=== PATIENT | female | born 1970 | race Caucasian/White ===

== ENCOUNTER 2017-03-05 22:08 | Inpatient (IN) | payer OTHER ==
[~2017-03-05] VITALS: Ht 157.5 cm; Wt 90.8 kg
[~2017-03-05 22:08] MED LIST: GLU500 PO; HUMI SC; LANTI SQ; LOT10 PO; PRA40 PO
--- NOTE | 2017-03-05 23:07 | NUR ---
PT C/C WOUND CHECK TO HER MIDDLE TOE ON HER RIGHT FOOT. PT REPORTS ABRASION IN TOE BEGAN AT THE BEGINNING OF THIS MONTH AND WAS SEEN BY HCP. PT STATES SHE WAS BEING TREATED WITH ANTIBIOTIC BUT HAS NOTED IN THE PAST 3 DAYS WOUND BEGINNING TO GET WORSE. PT REPORTS FEELING PAIN THAT BEGIN IN HER MIDDLE TOE AND RADIATES UP HER RIGHT LEG. PT DOES HAVE SENSATION TO AFFECTED FOOT. PT IN BED WITH SIDERAILS UP FOR HER SAFETY. PT AAOX3, BREATHING WITHOUT DIFFICULTY. COMFORT MEASURES IN PLACE, CALL LIGHT IS WITHIN REACH. NO SX OF DISTRESS NOTE AT THIS TIME.
--- NOTE | 2017-03-05 23:07 | NUR ---
MSE COMPLETED BY DR PERRY
[2017-03-05 23:10] LABS: BASOPHIL % 0.8 % (0-2); PLATELET COUNT 253 x10^3mcL (130-400); RED CELL DISTRIBUTION WIDTH 12.8 % (11.5-14.5)
[2017-03-05 23:20] LABS: CALCIUM 9.1 mg/dL (8.5-10.1); CARBON DIOXIDE 26.7 mmol/L (21-32); CREATININE SERUM 1.5 mg/dL (0.6-1.0); POTASSIUM SERUM 4.3 mmol/L (3.5-5.1)
[2017-03-05 23:25] LABS: BILIRUBIN TOTAL 0.18 mg/dL (0.20-1.00)
[2017-03-05 23:28] LABS: ALBUMIN 3.2 g/dL (3.4-5.0); TOTAL PROTEIN, SERUM 8.3 g/dL (6.4-8.2)
--- NOTE | 2017-03-05 23:32 | NUR ---
XRAY AT BEDSIDE.
--- NOTE | 2017-03-06 00:22 | NUR ---
PT AMBULATED TO RESTROOM WITH EVEN AND STEADY GAIT.
[2017-03-06 00:29] LABS: ERYTHROCYTE SED RATE 70 mm/hr (0-20)
--- NOTE | 2017-03-06 01:48 | NUR ---
PT MEDICATED PER DR PERRY ORDERS. PT IV SITE PATENT WITH NO SX OF COMPLICATIONS NOTED. PT EDUCATED ON MED AND DENIES ANY ALLERGIES TO MED. PT AAOX3, BREATHING WITHOUT DIFFICULTY. NO SX OF DISTRESS NOTED. CALL LIGHT PLACED WITHIN REACH.
--- NOTE | 2017-03-06 02:12 | NUR ---
ADMISSION REPORT GIVEN TO LUC[facility]A EXT [id number] TO CONTINUE CARE.
[2017-03-06 03:50] VITALS: BP 144/66
--- NOTE | 2017-03-06 03:55 | NUR ---
PT ADMITTED FROM ED VIA W/C ACCOMPANIED BY NURSE. PT AMBULATORY WITH STEADY GAIT. ALERT AND AWAKE WITH VERBAL CLEAR SPEECH. AOX4. NO S/S OF RESPIRATORY DISTRESS NOTED ON ROOM AIR. LUNGS CLEAR BILATERALLY. ON TELE 5, NSR. DENIES ANY CHEST PAIN. ABD SOFT AND ROUND. BOWEL SOUNDS ACTIVE. LAST BM 03/06/17. SKIN WARM AND DRY. IV TO LEFT FA PATENT AND INTACT. NO S/S OF INFECTION NOTED. NOTED WITH EDEMA TO RLE 1-2+ WITH REDNESS AND SWELLING TO RIGHT 3RD TOE. NO DRAINAGE NOTED. PULSES PALPABLE. SCDS IN PLACE. PT STATES PAIN IS TOLERABLE AND REFUSES ANY PAIN MEDICATION AT THIS TIME. NO S/S OF DISTRESS NOTED. CALL LIGHT WITHIN REACH. WILL CONTINUE TO MONITOR.
[2017-03-06 04:30] VITALS: BP 144/66
--- NOTE | 2017-03-06 06:10 | NUR ---
PT CURRENTLY RESTING IN BED WITH EYES CLOSED. BREATHING EQUAL AND UNLABORED ON ROOM AIR. NO S/S OF RESPIRATORY DISTRESS NOTED. EASILY AROUSABLE. NO ADVERSE REACTIONS NOTED FROM IV CLEOCIN. IV PATENT AND INTACT. PT C/O 11/17 PAIN TO RLE. PRN NORCO 5 MG PO GIVEN. CALL LIGHT WITHIN REACH. WILL CONTINUE TO MONITOR.
--- NOTE | 2017-03-06 07:20 | NUR ---
REPORT RCD FROM JERRY HODGE. PATIENT AWAKE, ALERT, NO DISTRESS. REPORTS 7/10 PAIN BUT IMPROVED AND TOLERABLE AFTER PREVIOUS NORCO RCD. SALINE LOCK TO LFA, SITE W/O COMPLICATIONS. BED LOW, CALL LIGHT WITHIN REACH. WILL MONITOR.
--- NOTE | 2017-03-06 07:25 | NUR ---
SHIFT ASSESSMENT PERFORMED AND DOCUMENTED. A/OX4, DENIES HEADACHE OR DIZZINESS, SPEECH CLEAR, EQUAL HAND SEAMLESS TUBE ROLLER, COMMUNICATES NEEDS. TELE 5, SR, RATE IN 60s, DENIES CHEST PAIN. MODERATE PERIPHERAL PULSES. 1+ PITTING EDEMA TO RIGHT FOOT. REDNESS NOTED TO RIGHT 3RD DIGIT WITH DRY SCAB TO END OF TOE, CANDE, NO DRAINAGE NOTED. LUNGS CTA ROX, REG RESPS, DENIES SHORTNESS OF BREATH. ABD SOFT, NONTENDER, BOWEL SOUNDS ACTIVE. DENIES ELBA/VTG/CARY. AMBULATORY. CALM AND COOPERATIVE. WILL MONITOR.
--- NOTE | 2017-03-06 07:55 | NUR ---
PAGED DR. CLAYTON, RECEIVED RETURN CALL. PER DR. CLAYTON PLEASE ENTER TELEPHONE ORDER, READ BACK FOR [facility] DIET, SALINE LOCK AND FLUSH. ORDERS ENTERED PER MD REQUEST HE STATES HE IS AT [facility] AND UNABLE TO ENTER ORDERS AT THIS TIME.
[2017-03-06 09:49] VITALS: BP 104/47
--- NOTE | 2017-03-06 09:53 | NUR ---
MEDICATIONS GIVEN PER MAR. PATIENT REPORTS NO NEEDS AT THIS TIME.
--- NOTE | 2017-03-06 12:17 | NUR ---
PATIENT IS AWAKE ALERT, COMFORTABLE. NO NEEDS AT THIS TIME.
--- NOTE | 2017-03-06 13:05 | NUR ---
URINE COLLECTED AND DELIVERED TO LAB PER MD ORDER.
[2017-03-06 14:27] LABS: microscopic required? YES; urine erythrocyte 1+ (NEGATIVE)
--- NOTE | 2017-03-06 16:25 | NUR ---
SPOKE WITH DR. CLAYTON AND MADE AWARE OF CT RIGHT FOOT/ANKLE RESULTS. PER DR. LIN PATIENT IS STABLE FOR DISCHARGE HOME TODAY. PATIENT WILL BE SENT HOME WITH A PRESCRIPTION FOR CLINDAMYCIN 300 MG PO QID AND WILL NEED OUTPATIENT PICC LINE INSERTION FOR JAIL IV ANTIBIOTIC, HOME HEALTH WITH IV VANCOMYCIN PHARMACY TO DOSE FOR 6 WEEKS. PRIMARY NURSE MADE AWARE.
[2017-03-06 16:32] VITALS: BP 139/69
--- NOTE | 2017-03-06 17:00 | NUR ---
DR. CLAYTON INFORMED BY TRAMAINE, CHARGE NURSE, THE RESULTS OF CT SCAN OF RIGHT FOOT. PATIENT TO BE DISCHARGED ON ORAL ANTIBIOTICS. REFERRAL TO HOME HEALTH FOR PICC LINE INSERTION AND IV VANCOMYCIN X6 WEEKS FAXED TO NUMBER PROVIDED BY DR. CLAYTON (FAXED BY TRAMAINE). PATIENT PROVIDED WITH PRESCRIPTIONS. PER DR. CLAYTON, PATIENT TO BE DISCHARGED. SHE IS TO FOLLOW UP WITH HIM IN ONE WEEK IF SHE HAS NOT HEARD FROM HOME HEALTH. VERBAL AND WRITTEN DISCHARGE INSTRUCTIONS PROVIDED TO THE PATIENT. ALL QUESTIONS ANSWERED. IV TO LFA REMOVED, SITE W/O COMPLICATIONS. PATIENT GETTING DRESSED AND WILL CALL FOR ESCORT DOWNSTAIRS.
== END 2017-03-06 17:21 | disposition home or self-care (01) | DRG 344 ==
LOC: ED 22:08 → MU 03-06 00:49
PROVIDERS: Emergency Medicine; ADMIT Internal Medicine Pulmonary Disease
DX: E11.69 Type 2 diabetes mellitus with other specified complication (principal); M86.9 Osteomyelitis, unspecified; I10 Essential (primary) hypertension; L08.89 Other specified local infections of the skin and subcutaneous tissue; Z89.422 Acquired absence of other left toe(s); E78.00 Pure hypercholesterolemia, unspecified; N28.9 Disorder of kidney and ureter, unspecified
CPT/HCPCS: 82962; 83880; J1650; J1815; J3010; J3370; J3490; J7030; J7050; Q0092

== ENCOUNTER 2018-02-01 17:10 | Emergency (ER) | payer OTHER ==
[~2018-02-01] VITALS: Ht 157.5 cm; Wt 88.5 kg
[2018-02-01 17:24] VITALS: Ht 157.5 cm; Wt 88.5 kg
[2018-02-01 18:04] LABS: BASOPHIL % 0.7 % (0-2); PLATELET COUNT 269 x10^3mcL (130-400); RED CELL DISTRIBUTION WIDTH 12.9 % (11.5-14.5)
[2018-02-01 18:07] LABS: CALCIUM 9.1 mg/dL (8.5-10.1); CARBON DIOXIDE 25.8 mmol/L (21-32); CREATININE SERUM 1.6 mg/dL (0.6-1.0)
[2018-02-01 18:12] LABS: ALBUMIN 3.3 g/dL (3.4-5.0); BILIRUBIN TOTAL 0.2 mg/dL (0.20-1.00)
[2018-02-01 20:09] VITALS: BP 157/74
== END 2018-02-01 20:09 | disposition home or self-care (01) ==
LOC: ED 17:10
PROVIDERS: Emergency Medicine
DX: L03.031 Cellulitis of right toe (principal); E11.65 Type 2 diabetes mellitus with hyperglycemia; I10 Essential (primary) hypertension; E78.00 Pure hypercholesterolemia, unspecified; Z89.411 Acquired absence of right great toe; Z89.421 Acquired absence of other right toe(s)
CPT/HCPCS: 82962; J2543; J3490; J7030; Q0092

== ENCOUNTER 2018-05-15 11:04 | Emergency (ER) | payer OTHER ==
[~2018-05-15] VITALS: Ht 157.5 cm; Wt 87.2 kg
[2018-05-15 11:13] VITALS: Ht 157.5 cm; Wt 87.2 kg
[2018-05-15 12:13] LABS: BASOPHIL % 0.8 % (0-2); PLATELET COUNT 257 x10^3mcL (130-400); RED CELL DISTRIBUTION WIDTH 12.8 % (11.5-14.5)
[2018-05-15 12:20] LABS: CALCIUM 9.2 mg/dL (8.5-10.1); CARBON DIOXIDE 26.7 mmol/L (21-32); CREATININE SERUM 1.4 mg/dL (0.6-1.0); POTASSIUM SERUM 4.8 mmol/L (3.5-5.1)
[2018-05-15 13:00] VITALS: BP 165/82
== END 2018-05-15 13:00 | disposition home or self-care (01) ==
LOC: ED 11:04
PROVIDERS: Emergency Medicine
DX: L03.031 Cellulitis of right toe (principal)
CPT/HCPCS: 36415; 82962; Q0092

== ENCOUNTER 2018-06-19 13:12 | Emergency (ER) | payer OTHER ==
[~2018-06-19] VITALS: Ht 157.5 cm; Wt 90.7 kg
[2018-06-19 13:18] VITALS: Ht 157.5 cm; Wt 90.7 kg
[2018-06-19 14:34] LABS: BASOPHIL % 0.5 % (0-2); PLATELET COUNT 221 x10^3mcL (130-400); RED CELL DISTRIBUTION WIDTH 13.4 % (11.5-14.5)
[2018-06-19 14:44] LABS: CALCIUM 9.1 mg/dL (8.5-10.1); CARBON DIOXIDE 27.9 mmol/L (21-32); CREATININE SERUM 1.4 mg/dL (0.6-1.0); POTASSIUM SERUM 3.9 mmol/L (3.5-5.1)
[2018-06-19 14:49] LABS: ALBUMIN 3.2 g/dL (3.4-5.0); BILIRUBIN TOTAL 0.26 mg/dL (0.20-1.00); C REACTIVE PROTEIN 1.7 mg/dL (<=0.9); TOTAL PROTEIN, SERUM 7.7 g/dL (6.4-8.2)
[2018-06-19 15:18] LABS: ERYTHROCYTE SED RATE 60 mm/hr (0-20)
[2018-06-19 16:59] VITALS: BP 135/84
== END 2018-06-19 16:59 | disposition home or self-care (01) ==
LOC: ED 13:12
PROVIDERS: Emergency Medicine
DX: E11.621 Type 2 diabetes mellitus with foot ulcer (principal); L97.519 Non-pressure chronic ulcer of other part of right foot with unspecified severity; E78.00 Pure hypercholesterolemia, unspecified; I10 Essential (primary) hypertension; Z89.411 Acquired absence of right great toe; Z89.421 Acquired absence of other right toe(s)
CPT/HCPCS: 82962; J2543; J3370; Q0092

== ENCOUNTER 2018-09-09 18:49 | Emergency (ER) | payer OTHER ==
[~2018-09-09] VITALS: Ht 157.5 cm; Wt 90.7 kg
[2018-09-09 19:16] VITALS: Ht 157.5 cm; Wt 90.7 kg
[2018-09-09 20:10] LABS: BASOPHIL % 0.5 % (0-2); PLATELET COUNT 227 x10^3mcL (130-400); RED CELL DISTRIBUTION WIDTH 12.8 % (11.5-14.5)
[2018-09-09 20:26] LABS: CALCIUM 9.2 mg/dL (8.5-10.1); CARBON DIOXIDE 21.8 mmol/L (21-32); CREATININE SERUM 1.4 mg/dL (0.6-1.0); POTASSIUM SERUM 4.4 mmol/L (3.5-5.1)
[2018-09-09 20:31] LABS: BILIRUBIN TOTAL 0.2 mg/dL (0.20-1.00); TOTAL PROTEIN, SERUM 7.8 g/dL (6.4-8.2)
[2018-09-09 20:43] LABS: ALBUMIN 3.3 g/dL (3.4-5.0)
[2018-09-09 21:51] VITALS: BP 136/77
== END 2018-09-09 21:51 | disposition home or self-care (01) ==
LOC: ED 18:49
PROVIDERS: Emergency Medicine
DX: L03.031 Cellulitis of right toe (principal); I10 Essential (primary) hypertension; E11.9 Type 2 diabetes mellitus without complications; E78.00 Pure hypercholesterolemia, unspecified; Z89.411 Acquired absence of right great toe
CPT/HCPCS: J2543

== ENCOUNTER 2019-06-07 08:51 | Emergency (ER) | payer OTHER ==
[~2019-06-07] VITALS: Ht 157.5 cm; Wt 85.7 kg
[2019-06-07 09:00] VITALS: Ht 157.5 cm; Wt 85.7 kg
[2019-06-07 12:18] VITALS: BP 132/75
== END 2019-06-07 12:24 | disposition home or self-care (01) ==
LOC: ED 08:51
DX: M79.674 Pain in right toe(s) (principal); L03.115 Cellulitis of right lower limb; E11.621 Type 2 diabetes mellitus with foot ulcer; J45.909 Unspecified asthma, uncomplicated; I10 Essential (primary) hypertension; E11.9 Type 2 diabetes mellitus without complications; E78.00 Pure hypercholesterolemia, unspecified

== ENCOUNTER 2019-10-27 18:22 | Inpatient (IN) | payer OTHER ==
[~2019-10-27] VITALS: Ht 157.5 cm; Wt 91.4 kg
[2019-10-27 18:40] VITALS: Ht 157.5 cm; Wt 91.4 kg
[2019-10-27 19:19] LABS: BASOPHIL % 0.5 % (0-2); PLATELET COUNT 245 x10^3mcL (130-400); RED CELL DISTRIBUTION WIDTH 12.8 % (11.5-14.5)
[2019-10-27 19:22] LABS: CALCIUM 9.2 mg/dL (8.5-10.1); CARBON DIOXIDE 26.1 mmol/L (21-32); CREATININE SERUM 1.5 mg/dL (0.6-1.0); POTASSIUM SERUM 4.6 mmol/L (3.5-5.1)
[2019-10-27 19:27] LABS: ALBUMIN 3.4 g/dL (3.4-5.0); BILIRUBIN TOTAL 0.2 mg/dL (0.20-1.00); C REACTIVE PROTEIN 0.8 mg/dL (<=0.9); TOTAL PROTEIN, SERUM 7.7 g/dL (6.4-8.2)
--- NOTE | 2019-10-27 19:28 | NUR ---
PATIENT INSTRUCTED TO PROVIDE URINE SAMPLE DAVE.
[2019-10-27 20:04] LABS: ERYTHROCYTE SED RATE 51 mm/hr (0-20)
--- NOTE | 2019-10-27 20:50 | NUR ---
PT LYING IN BED RESTING. WITH COMPLAINT OF RIGHT FOOT PAIN. 4TH TOE. PT HAS A RIGHT GREATER TOE AMPUTATION. PT HAS PAIN 8/10.
--- NOTE | 2019-10-27 21:34 | NUR ---
PT HAS ADMIT ORDERS PRESENT AT THIS TIME.
[2019-10-27] MEDS ORDERED: HUMALOG100 U/ML SC (21:38)
[2019-10-27] MEDS ORDERED: BASAGLAR K100 UNIT/1 SQ (21:39)
[2019-10-27] MEDS ORDERED: HORIZANT300 MG PO (21:39)
[2019-10-27] MEDS ORDERED: ATORVASTATIN CA20 M1 PO (21:40)
[2019-10-27] MEDS ORDERED: [UNRECOGNIZED DRUG - CODE] PO (21:40)
[2019-10-27] MEDS ORDERED: MICROZIDE12.5 MG PO (21:40)
[2019-10-27] MEDS ORDERED: ASPIRIN FOR CHI81 M1 PO (21:41)
[2019-10-27] MEDS ORDERED: FORTAMET500 M1 PO (21:41)
--- NOTE | 2019-10-27 21:56 | NUR ---
REPORT GIVEN TO HEDY EDWARDS.
[2019-10-27 22:41] VITALS: BP 151/75
--- NOTE | 2019-10-27 22:52 | NUR ---
LATE ENTRY: 221H - RECEIVED FROM ER, TRANSPORTED VIA WHEELCHAIR. AMBULATED WITH STEADY GAIT. AWAKE AND ALERT, ORIENTED TO NAME, PLACE, TIME AND SITUATION. SPEECH CLEAR AND APPROPRIATE. BREATHING EVEN AND UNLABORED ON ROOM AIR. 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 CHIEF COMPLAINT OF PAIN TO 2ND RIGHT TOE. PT STATED SHE SEES A "FOOT DOCTOR" WHO TREATS THE ULCER NOTED UNDER THE 2ND RIGHT TOE. BUT PAIN PROGRESSIVELY GETTING WORSE, THUS SOUGHT ADMISSION TO ER. NOTED ULCER, NON DRAINAGE, 1CM X 1.5CM UNDER 2ND RIGHT TOE, SEE PHOTODOCUMENTATION, OPEN TO AIR. INSTRUCTED ON USE OF CALL LIGHT TO CALL FOR ASSISTANCE, PLACED WITHIN EASY REACH.
--- NOTE | 2019-10-27 23:37 | NUR ---
AWAKE AND ALERT, WATCHING TV. DISCUSSED PLAN OF CARE. IVF OF NS INFUSING AT 80ML/HR.
[2019-10-28 05:33] VITALS: BP 118/62
--- NOTE | 2019-10-28 06:20 | NUR ---
AMBULATED TO RESTROOM, VOIDING FREELY. DENIES HAVING PAIN AT THIS TIME. BREATHING EVEN AND UNLABORED ON ROOM AIR. IVF INFUSING WELL. CALL LIGHT WITHIN EASY REACH.
[2019-10-28 06:37] LABS: BASOPHIL % 0.5 % (0-2); PLATELET COUNT 223 x10^3mcL (130-400); RED CELL DISTRIBUTION WIDTH 13.2 % (11.5-14.5)
--- NOTE | 2019-10-28 07:04 | NUR ---
AWAKE AND ALERT, TALKING OVER THE PHONE. IN NO ACUTE DISTRESS. ENDORSED TO NURSE ALISSON
[2019-10-28 07:14] LABS: CALCIUM 8.5 mg/dL (8.5-10.1); CARBON DIOXIDE 24.5 mmol/L (21-32); CREATININE SERUM 1.3 mg/dL (0.6-1.0); POTASSIUM SERUM 5.1 mmol/L (3.5-5.1)
[2019-10-28 09:07] VITALS: BP 125/72
--- NOTE | 2019-10-28 18:49 | NUR ---
PATIENT RESTING COMFORTABLY IN BED, NO C/O OF PAIN AT THIS TIME, WILL ENDORSE CARE TO PM NURSE
[2019-10-28 19:01] VITALS: BP 148/75
--- NOTE | 2019-10-28 19:40 | NUR ---
RECEIVED PATIENT FROM DAY NURSE. MED-SURG PATIENT. PATIENT RESTING IN BED, A/O X4, VERBALLY RESPONSIVE. BREATHING E/U, ON ROOM AIR, DENIES SOB. ABD SOFT AND ROUND. NO EDEMA NOTED. 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 IV RIGHT WRIST INTACT, WNL AND INFUSIGN NS @ 80ML/HR. CALL LIGHT WITHIN REACH, BED IN LOWEST POSITION. WILL CONTINUE TO MONITOR.
[2019-10-28 20:08] VITALS: BP 132/69
--- NOTE | 2019-10-28 20:10 | NUR ---
PATIENT STATED THAT THEY SPOKE WITH PODIATRY REGARDING SURGERY OF 2ND RIGHT TOE AMPUTATION. PATIENT CONSENT HAD ALREADY BEEN SIGNED BY PATIENT AND PHYSICIAN AND PLACED IN PATIENT'S CHART. PATIENT IS TO NPO IN PREPARATION FOR SURGERY TOMORROW, PATIENT VERBALIZED UNDERSTANDING.
--- NOTE | 2019-10-29 00:42 | NUR ---
PATIENT RESTING IN BED WITH EYES CLOSED. EVEN CHEST RISE AND FALL. SHOWS NO SIGN OF PAIN OR DISTRESS. CALL LIGHT WITHIN REACH, BED IN LOWEST POSITION. WILL CONTINUE TO MONITOR.
--- NOTE | 2019-10-29 03:00 | NUR ---
PATIENT'S IV DISLODGED WITH REMOVED CATHETER INTACT, ATTEMPTED NEW IV START X1, 22G RFA INTACT, FLUSHED WELL AND INFUSING NS @ 80ML/HR. PATIENT STATED THAT SHE FEELS DIZZY AND SHAKY. MEASURED PATIENT'S BLOOD SUGAR @ 87. NPO SINCE MIDNIGHT IN PREPARATION FOR SURGERY LATER THIS MORNING. WILL NOTIFY PHYSICIAN.
--- NOTE | 2019-10-29 03:30 | NUR ---
CALLED DR. TIJERINA, MADE AWARE OF PATIENT'S CURRENT BLOOD SUGAR LEVEL OF 87 AND THAT PATIENT IS SYMPTOMATIC WITH COMPLAINTS OF DIZZINESS AND SHAKINESS AND THAT PATIENT HAS BEEN NPO SINCE MIDNIGHT IN PREPARTION FOR SURGERY LATER THIS MORNING. DR. TIJERINA STATED TO SWITCH FLUIDS TO D5NS @ 80 ML/HR AND TO HOLD INSULIN IN THE MORNING.
[2019-10-29 04:59] VITALS: BP 120/65
--- NOTE | 2019-10-29 07:05 | NUR ---
PATIENT RESTING IN BED, SCHEDULED FOR SURGERY @ 0730, NPO SINCE MIDNIGHT, PRE-OP BATH PERFORMED, PATIENT CHANGED INTO NEW PATIENT GOWN. CHECKED BLOOD SUGAR CURRENTLY 176, NO COVERAGE PER DR. TIJERINA, PATIENT DENIES DIZZINESS AND SHAKINESS. SURGICAL INFORMED CONSENT SIGNED AND PLACED IN PATIENT'S CHART, SURGERY CHECKLIST COMPLETED. PATIENT'S DAUGHTER LAURA REQUESTED TO BE NOTIFIED WHEN PATIENT IS DONE WITH SURGERY. CALL LIGHT WITHIN REACH, ALL NEEDS MET, SAFETY PRECAUTIONS MAINTAINED THROUGHOUT SHIFT. WILL ENDORSE CARE TO DAY NURSE. GAVE REPORT TO BERTRAM FROM OR.
--- NOTE | 2019-10-29 07:10 | NUR ---
RECEIVED PATIENT FROM PM NURSE, ALERT AND ORIENTED X 4, ABLE TO VERBALIZE NEEDS, LUNG SOUNDS CLEAR, ABLE TO AMBULATE INDEPENDENTLY, IV IN LFA PATENT, DENIES CHEST PAIN, BOWEL SOUNDS ACTIVE, LAST BM 10/27, ABDOMEN NON DISTENDED, ON REGULAR DIET, BUT NPO SINCE MIDNIGHT, WILL HAVE LEFT TOE AMPUTATED THIS AM PEDAL PULSES PRESENT AND EQUAL, NO EDEMA NOTED, CONTINENT OF BLADDER, NO PAIN REPORTED AT THIS TIME, PATIENT SCHEDULED TO HAVE 2ND GREAT TOE AMPUTATED VERBALIZING ANXIETY, PROVIDED REASSURANCE AND ACTIVE LISTENING
--- NOTE | 2019-10-29 07:30 | NUR ---
PATIENT TRANSPORTED TO OR VIA HOSPITAL BED, REPORT GIVEN TO NURSE, WILL UPDATE FAMILY NEEDED
[2019-10-29 07:37] LABS: BASOPHIL % 0.4 % (0-2); PLATELET COUNT 206 x10^3mcL (130-400); RED CELL DISTRIBUTION WIDTH 13.1 % (11.5-14.5)
[2019-10-29 09:31] VITALS: BP 138/70
[2019-10-29 09:33] LABS: CALCIUM 8.5 mg/dL (8.5-10.1); CARBON DIOXIDE 23.1 mmol/L (21-32); CREATININE SERUM 1.3 mg/dL (0.6-1.0); POTASSIUM SERUM 4.5 mmol/L (3.5-5.1)
--- NOTE | 2019-10-29 09:50 | NUR ---
PATIENT RETURNED FROM OR, NO DISTRESS NOTED AT THIS TIME, VS WNL, WILL CONTINUE TO MONITOR
--- NOTE | 2019-10-29 10:13 | NUR ---
AM MEDS ADMINISTERED LATE DUE TO PATIENT IN OR
--- NOTE | 2019-10-29 12:00 | NUR ---
APPLIED ICE PACK TO RIGHT FOOT, PATIENT TOLERATED WELL NO C/O PAIN OR DISCOMFORT AT THIS TIME
--- NOTE | 2019-10-29 12:30 | NUR ---
PATIENT ABLE TO AM,BUKLATE TO BED SIDE COMMODE INDEPENDENTLY, WITH USE OF POST OP SHOE
[2019-10-29 18:01] VITALS: BP 133/62
--- NOTE | 2019-10-29 19:50 | NUR ---
RECEIVED PATIENT FROM DAY NURSE. MED-SURG PATIENT. PATIENT RESTING IN BED, A/O X4, VERBALLY RESPONSIVE. BREATHING E/U, ON ROOM AIR. ABD SOFT AND ROUND, HAD NO BM NOR PASSED GAS AFTER SURGERY YET. S/P RIGHT 2ND TOE AMPUTATION SURGERY THIS MORNING, RIGHT FOOT DRESSED, CDI, ELEVATED ON PILLOW AND PROVIDED TWO ICE PACK, C/O OF RIGHT FOOT PAIN LEVEL 7/10, WILL GIVE PAIN MEDICATION PRN PER EMAR. CALL LIGHT WITHIN REACH, BED IN LOWEST POSITION. WILL CONTINUE TO MONITOR.
[2019-10-29 20:56] VITALS: BP 146/64
--- NOTE | 2019-10-29 20:58 | NUR ---
ATTEMPTED TO RETRIEVE SCHEDULED MEDICATIONS FROM [facility], PROFILE MED LIST ONLY SHOWED NORCO PRN, EMAR SHOWED COMPLETE PATIENT'S ACTIVE MEDICATION LIST. TALKED WT PHARMACIST JUAN J FROM PHARMACY, HE STATED THAT HE WILL ADD LIPITOR TO PROFILE, AND THAT THERE IS MOST LIKELY A GLITCH BETWEEN THE EMAR AND PYXIS THAT MAY RESOLVE BY TOMORROW. HE STATED THAT I CAN OVERRIDE ON THE PYXIS ANY FURTHER MEDICATIONS FROM PATIENT'S ACTIVE MEDICATION LIST ON EMAR. CHARGE NURSE MADE AWARE.
--- NOTE | 2019-10-29 21:25 | NUR ---
PATIENT'S BLOOD SUGAR 261, GAVE SCHEDULED 20 UNITS LANTUS AND 9 UNITS HUMULIN AND PROVIDED TUNA [employer]AD SANDWICH.
--- NOTE | 2019-10-29 21:34 | NUR ---
SPOKE TO DR. LAWTON VIA TELEPHONE. MADE AWARE OF CURRENT BS 261 WITH IVF D5NS @ 80. PT EATING CCHO DIET POST OP AND TOLERATING WELL. REC'D ORDERS TO CHANGE IVF TO NS @ 80 ML/HR AND PT EVAL. PRIMARY RN DANICA MADE AWARE.
--- NOTE | 2019-10-30 01:12 | NUR ---
PATIENT RESTING IN BED WITH EYES CLOSED. EVEN CHEST RISE AND FALL. SHOWS NO SIGN OF PAIN OR DISTRESS. RIGHT FOOT DRESSED, CDI, AND ELEVATED ON PILLOW. TOOK PATIENT'S BLOOD SUGAR, CURRENTLY AT 205. CALL LIGHT WITHIN REACH, BED IN LOWEST POSITION, WILL CONTINUE TO MONITOR.
[2019-10-30 05:15] VITALS: BP 126/60
--- NOTE | 2019-10-30 06:50 | NUR ---
DR. DAN CAME TO SEE PATIENT. PATIENT RESTING IN BED, BREATHING E/U, STATES R FOOT PAIN LEVEL 6/10, STATED THAT IT IS TOLERABLE @ THIS TIME AND REFUSED PAIN MEDICATION. R FOOT DRESSED S/P RIGHT 2ND BIG TOE AMPUTATION YESTERDAY, CDI, ELEVATED ON PILLOW. NO SIGNIFICANT CHANGES DURING SHIFT, ALL NEEDS MET, CALL LIGHT WITHIN REACH, SAFETY PRECAUTIONS MAINTAINED THROUGHOUT SHIFT.
--- NOTE | 2019-10-30 07:40 | NUR ---
RECEIVED PT FROM NEON ELECTRICIAN. PT RESTING IN BED. ASSESSED AND DOCUMENTED. DENIES PAIN THIS TIME. STABLE. SAFTEY PRECAUTIONS ARE IN PLACE. WILL MONITOR.
[2019-10-30 08:11] VITALS: BP 141/67
--- NOTE | 2019-10-30 11:00 | NUR ---
PT RESTING IN BED COMFORTABLY. DENIES ANY PAIN. STABLE.
[2019-10-30 12:43] VITALS: BP 150/59
--- NOTE | 2019-10-30 13:00 | NUR ---
PT RESTING IN BED. EATING WELL. DENIES ANY PAIN. STABLE. V/S STABLE.
--- NOTE | 2019-10-30 16:00 | NUR ---
PT RESTING IN BED COMFORTABLY. DENIES ANY PAIN THIS TIME. STABLE. WILL MONITOR.
[2019-10-30 16:10] VITALS: BP 162/81
--- NOTE | 2019-10-30 19:10 | NUR ---
PT RESTING IN BED COMFORTABLY. DENIES PAIN THIS TIME. STABLE. GAVE REPORT TO AIR VALUE TESTER NURSE.
--- NOTE | 2019-10-30 19:15 | NUR ---
RECEIVED PATIENT FROM DAY NURSE. MED-SURG PATIENT. PATIENT RESTING IN BED, A/O X4, VERBALLY RESPONSIVE. BREATHING E/U, ON ROOM AIR, DENIES SOB. ABD SOFT AND ROUND. NO EDEMA NOTED. R FOOT DRESSED S/P RIGHT 2ND TOE AMPUTATION, CDI, ELEVATED ON PILLOW, C/O OF PAIN LEVEL 6/10 AND STATED THAT PAIN IS TOLERABLE AND REFUSES PAIN MEDICATION PRN PER EMAR @ THIS TIME. IV RFA INTACT, SHOWS NO SIGN OF INFILTRATION AND INFUSING NS @ 80ML/HR. CALL LIGHT WITHIN REACH, BED IN LOWEST POSITION. WILL CONTINUE TO MONITOR.
--- NOTE | 2019-10-30 19:50 | NUR ---
PATIENT HAD A BM, AND STATED THAT SHE STILL FEELS CONSTIPATED AND REQUESTS FOR LAXATIVE. PATIENT CURRENTLY DOES NOT HAVE A DVT PROPHYLAXIS ORDER @ THIS TIME. WILL NOTIFY PHYSICIAN.
--- NOTE | 2019-10-30 20:20 | NUR ---
PAGED DR. TIJERINA TO REQUEST FOR LAXATIVE AND DVT PROPHYLAXIS ORDER. WILL WAIT FOR CALL BACK.
[2019-10-30 20:50] VITALS: BP 147/74
--- NOTE | 2019-10-30 20:50 | NUR ---
CALLED DR. TIJERINA AGAIN, WAITING FOR CALL BACK.
--- NOTE | 2019-10-30 21:00 | NUR ---
DR. TIJERINA CALLED BACK, HE STATED THAT HE WILL PLACE ORDERS FOR LAXATIVE AND DVT PROPHYLAXIS.
--- NOTE | 2019-10-30 23:23 | NUR ---
CHECKED PATIENT'S ORDERS, NO NEW ORDER FOR LAXATIVE OR DVT PROPHYLAXIS HAVE BEEN PLACED. CALLED DR. TIJERINA, HE STATED THAT HE WILL PUT THEM IN.
--- NOTE | 2019-10-31 00:45 | NUR ---
PATIENT RESTING IN BED WITH EYES CLOSED. EVEN CHEST RISE AND FALL. SHOWS NO SIGN OF PAIN OR DISTRESS. R FOOT DRESSED, CDI, ELEVATED ON PILLOW. CALL LIGHT WITHIN REACH, WILL CONTINUE TO MONITOR.
[2019-10-31 05:30] VITALS: BP 132/62
--- NOTE | 2019-10-31 06:10 | NUR ---
PATIENT RESTING IN BED, BREATHING E/U. R FOOT DRESSED, CDI, ELEVATED ON PILLOW, DENIES PAIN @ THIS TIME, PT EVAL PENDING. CALL LIGHT WITHIN REACH, ALL NEEDS MET, SAFETY PRECAUTIONS MAINTAINED THROUGHOUT SHIFT. WILL ENDORSE CARE TO DAY NURSE.
[2019-10-31 06:27] LABS: BASOPHIL % 0.8 % (0-2); PLATELET COUNT 217 x10^3mcL (130-400)
[2019-10-31 06:52] LABS: CALCIUM 8.5 mg/dL (8.5-10.1); CARBON DIOXIDE 25.6 mmol/L (21-32); CREATININE SERUM 1.2 mg/dL (0.6-1.0); MAGNESIUM 1.8 mg/dL (1.8-2.4); POTASSIUM SERUM 4.4 mmol/L (3.5-5.1)
--- NOTE | 2019-10-31 07:30 | NUR ---
RECEIVED PT FROM PM NURSE. PATIENT RESTING COMFORTABLY IN BED AT THIS TIME. NO FACIAL DISTRESS OR SOB NOTED. PT IS A/OX4. LUNG SOUNDS CTA. BREATHING E/U ON RA. MARILYN SURG. DENIES CP/PRESSURE. PALPABLE AND EVEN PULSES. NO EDEMA NOTED. ACTIVE BS X4. LBM 10/29. DENIES N/V/D. VOIDS FREELY. GENERALIZED WEAKNESS NOTED. R FOOT DRESSED S/P RIGHT 2ND TOE AMPUTATION. CDI. ELEVATED ON PILLOW. NO C/O OF PAIN AT THIS TIME. IV 22G ON RFA. INTACT AND PATENT. NO SIGNS OF INFILTRATION. CURRENTLY INFUSING NS @80ML/HR. BED AT LOWEST POSITION. CALL LIGHT WITHIN REACH. WILL CONTINUE TO MONITOR.
[2019-10-31 08:43] VITALS: BP 137/51
[2019-10-31 12:25] VITALS: BP 147/58
[2019-10-31 14:34] VITALS: BP 147/58
--- NOTE | 2019-10-31 15:31 | NUR ---
SPOKE WITH SORAYA IN CASE MANAGEMENT, PER SORAYA AWAITING AUTHORIZATION FROM INSURANCE FOR FWW, FWW WILL BE DELIEVERED TO HOSPITAL. WILL EXPLAIN TO PT AWAITING FWW BEFORE BEING DISCHARGED.
--- NOTE | 2019-10-31 16:53 | NUR ---
SPOKE WITH [facility] REGARDING FWW, FWW WILL BE DELIEVERED TO HOSPITAL BETWEEN 5PM AND 9PM. WILL UPDATE PT.
[2019-10-31 17:30] VITALS: BP 149/67
== END 2019-10-31 18:54 | disposition home health service (06) | DRG 314 ==
LOC: ED 18:22 → MU 20:35
PROVIDERS: Emergency Medicine; Internal Medicine Pulmonary Disease; Podiatrist Foot & Ankle Surgery; ADMIT Internal Medicine Pulmonary Disease; ATTEND Internal Medicine Pulmonary Disease
PROC: 0Y6R0Z0 Detachment at Right 2nd Toe, Complete, Open Approach (ICD-10-PCS; principal; 2019-10-29 07:30)
DX: E11.628 Type 2 diabetes mellitus with other skin complications (principal); E11.22 Type 2 diabetes mellitus with diabetic chronic kidney disease; E11.65 Type 2 diabetes mellitus with hyperglycemia; L03.031 Cellulitis of right toe; M86.8X7 Other osteomyelitis, ankle and foot; E11.621 Type 2 diabetes mellitus with foot ulcer; E11.69 Type 2 diabetes mellitus with other specified complication; J45.909 Unspecified asthma, uncomplicated; L97.518 Non-pressure chronic ulcer of other part of right foot with other specified severity; N18.9 Chronic kidney disease, unspecified; E66.9 Obesity, unspecified; E78.5 Hyperlipidemia, unspecified; I12.9 Hypertensive chronic kidney disease with stage 1 through stage 4 chronic kidney disease, or unspecified chronic kidney disease; E78.00 Pure hypercholesterolemia, unspecified; Z89.411 Acquired absence of right great toe; Z89.421 Acquired absence of other right toe(s); Z79.4 Long term (current) use of insulin; Z68.36 Body mass index [BMI] 36.0-36.9, adult
CPT/HCPCS: 82962; 97116-GP; G0378; J0295; J0696; J1644; J1815; J2250; J2270; J2405; J3010; J3370; J3490; J7030; J7042; J7050; Q0092